=== PATIENT | male | born 1980 | race American Indian/Alaskan Native ===

== ENCOUNTER 2017-09-14 17:59 | Emergency (ER) | payer SELFPAY ==
[2017-09-14 18:08] VITALS: BP 133/92
== END 2017-09-15 00:45 | disposition left against medical advice (07) ==
LOC: ED 17:59
DX: M25.571 Pain in right ankle and joints of right foot (principal); Z53.21 Procedure and treatment not carried out due to patient leaving prior to being seen by health care provider